=== PATIENT | male | born 1950 | race Caucasian/White ===

== ENCOUNTER 2017-02-11 08:25 | Day surgery (SDC) | payer BC, OTHER ==
[2017-02-09 16:04] VITALS: BMI 34.7
[~2017-02-11 08:25] MED LIST: DEXAMETHASONE SOD PHOSPHATE 10 MG/ML 1 ML VIAL IV ONE; HEPARIN SODIUM,PORCINE 5,000 UNIT/ML 1 ML VIAL SQ ONE; LACTATED RINGERS 1,000 ML IV SCH; MIDAZOLAM 2 MG/2 ML VIAL IV PRN; SCOPOLAMINE 1.5MG/72HR PATCH TRANSDERM ONE; ceFAZolin 2 GM in SODIUM CHLORIDE 0.9% 100 ML IVPB ONE
[2017-02-11 09:40] LABS: Glucose,Whole Blood 139 mg/dL (75-99)
[2017-02-11] MEDS: ONDANSETRON 4 MG/2 ML VIAL IVP ONE ×2 (09:44→14:26)
[2017-02-11] MEDS ORDERED: BUPIVACAIN-EPI 0.25%-1:200,000 30 ML VIAL SQ ONE ×2 (10:27→12:37)
[2017-02-11] MEDS ORDERED: KETOROLAC 30 MG/ML 1 ML VIAL ONE (10:33)
[2017-02-11] MEDS ORDERED: VECURONIUM 10 MG VIAL IV ONE (10:33)
[2017-02-11] MEDS ORDERED: SUCCINYLCHOLINE CHLORIDE 100 MG/5 ML SYR IV ONE (10:33)
[2017-02-11] MEDS ORDERED: NEOSTIGMINE 1 MG/ML 10 ML VIAL ONE (10:33)
[2017-02-11] MEDS ORDERED: SODIUM CHLORIDE 0.9% 50 ML with ceFAZolin 2,000 MG IV ONE ×2 (10:33)
[2017-02-11] MEDS ORDERED: MIDAZOLAM 2 MG/2 ML VIAL ONE (10:33)
[2017-02-11] MEDS ORDERED: GLYCOPYRROLATE 0.2 MG/ML 2 ML VIAL ONE (10:33)
[2017-02-11] MEDS ORDERED: PROPOFOL 10 MG/ML 20 ML VIAL IV ONE (10:33)
[2017-02-11] MEDS ORDERED: LABETALOL 5 MG/ML VIAL MDV ONE (10:33)
[2017-02-11] MEDS ORDERED: LIDOCAINE 1% INJ 10MG/ML (20 ML MDV) ONE (10:33)
[2017-02-11] MEDS ORDERED: fentaNYL (PF) 50 MCG/ML 2 ML AMP ONE (10:33)
[2017-02-11] MEDS ORDERED: LACTATED RINGERS 1,000 ML IV ONE (12:03)
[2017-02-11 13:13] VITALS: RESP 16; TEMP 97.1
[2017-02-11] MEDS: HYDROmorphone 1 MG/ML 1 ML SYRINGE IVP PRN ×4 (13:20→13:55)
[2017-02-11 14:36] LABS: Glucose,Whole Blood 170 mg/dL (75-99)
[2017-02-11] MEDS ORDERED: PROMETHAZINE INJ 25 MG/ML 1 ML VIAL IVPB ONE (15:13)
[2017-02-11 15:16] VITALS: BP 118/69; PULSE 67
--- NOTE | 2017-02-28 15:27 | P.OP ---
Date of Procedure: 02/11/17 Preoperative Diagnosis: Recurrent umbilical hernia Obesity BMI 34.7 Postoperative Diagnosis: Same Procedure(s) Performed: Robot-assisted laparoscopic lysis of adhesions and recurrent umbilical hernia repair with mesh Implants: Ventralex ST patch -6.4 cm circular Anesthesia: GORGE local Surgeon: Ines Vasquez Pathology: none sent Condition: other (ASA3) Disposition: PACU Indications for Procedure: 66 years old male presents with recurrent umbilical hernia. Prior history of laparoscopic umbilical hernia repair with mesh. Informed consent obtained and patient elected to undergo robotic assist laparoscopic recurrent umbilical hernia repair with mesh Operative Findings: There were omentum and small bowel adhesions to the undersurface of the mesh. Prior mesh had contracted. The umbilical hernia defect containing preperitoneal fat. This was reduced and closed primarily and a new mesh was placed in underlay fashion Description of Procedure: The patient was brought to the operating room and placed in supine position. General anesthesia with endotracheal intubation was performed as per anesthesia team. The right arm was tucked against the body and a footboard was applied. Chlorhexidine was used to prep the skin followed by application of sterile drapes and Ioban dressing. A timeout was performed to verify correct patient and correct procedure. Patient was confirmed to receive perioperative IV antibiotics , bilateral SCDs and 5000 units of subcutaneous heparin for VTE prophylaxis. A 5 mm skin incision was made along the left midaxillary line and a Veress needle was inserted to establish the pneumoperitoneum to a pressure of 15 mm of Hg. Using a 5 mm 30 laparoscope the peritoneal cavity was entered using the Optiview technique. Additional 12 mm trocar was placed in the mid axillary line in the left mid abdomen and robotic 8 mm trocar in the left lower abdomen. The 5 mm trocar was upsized to 8 mm robotic trocar. The da Desiree robot was then docked. The 30 robotic camera was used. A robotic prograsp and monopolar scissors were inserted through 8 mm robotic trocars The hernia defect contained preperitoneal fat and omentum which were reduced using gentle traction and countertraction method. The falciform ligament was divided using monopolar scissors close to the anterior abdominal wall to create a landing zone for the mesh. The prior mesh had small bowel and omental adhesions. Sharp dissection was carried out to free up the adhesions from the undersurface of the mesh. The edge of the mesh was grasped and the peritoneal and transversalis fascia were peeled off using monopolar scissors until the hernia defect was identified and measured 2 x 2 centimeters. There were preperitoneal fat in the hernia defect which was reduced. There were multiple stay sutures from prior hernia repair which will also removed. A Ventralex ST 6.4 cm circular mesh was tagged in the center using a prolene stitich and was rolled and introduced to the abdominal cavity via the 12 mm trocar. The hernia defect was closed primarily with running sutures using O- V lock by taking 1 cm bite on the fascia on either side of the defect. A Rui Jayjay device was inserted through the middle of the hernia defect and the stay suture on the mesh was grasped to elevate the mesh against the anterior abdominal wall. The mesh was circumferentially sutured to the peritoneum of the anterior abdominal wall using 2-0 V lock without any folds or kinks. The transversalis flap with old mesh was then sewn to cover the newly placed mesh .The robot was then undocked. Laparoscopic 30 degrees camera was reinserted. All trocar sites were examined. No evidence of bleeding. The 12 mm trocar site was closed using two transfascial sutures of 0 Vicryl which were placed using a Rui Jayjay device. The pneumoperitoneum was evacuated and all the skin incisions were closed using 4-0 Monocryl followed by Dermabond skin glue. Telfa and Tegaderm dressings were applied. The sponge, instrument and needle count were correct x2. Abdominal binder was applied. The patient was extubated and taken to post anesthesia care unit in stable condition.
== END 2017-02-11 17:01 | disposition home or self-care (01) ==
LOC: OR 08:25
PROVIDERS: ATTEND Surgery
DX: K42.9 Umbilical hernia without obstruction or gangrene (principal); E66.9 Obesity, unspecified; Z68.34 Body mass index [BMI] 34.0-34.9, adult; Z87.891 Personal history of nicotine dependence; E11.9 Type 2 diabetes mellitus without complications; Z79.84 Long term (current) use of oral hypoglycemic drugs; D50.9 Iron deficiency anemia, unspecified; I10 Essential (primary) hypertension; I25.10 Atherosclerotic heart disease of native coronary artery without angina pectoris; I25.2 Old myocardial infarction; G47.33 Obstructive sleep apnea (adult) (pediatric); K21.9 Gastro-esophageal reflux disease without esophagitis; M19.90 Unspecified osteoarthritis, unspecified site; Z79.891 Long term (current) use of opiate analgesic; Z79.899 Other long term (current) drug therapy
CPT/HCPCS: 49652; S2900; 93005